=== PATIENT | male | born 1970 | race Caucasian/White ===

== ENCOUNTER 2018-02-20 21:58 | Emergency (ER) | payer OTHER ==
[~2018-02-20] VITALS: Ht 167.6 cm; Wt 98.9 kg
[2018-02-20] MEDS ORDERED: PAXIL10 MG/5 ML (22:22)
[2018-02-20] MEDS ORDERED: EFFEXOR XR37.5 MG (22:23)
[2018-02-20] MEDS ORDERED: SEROPHENE50 MG (22:24)
[2018-02-20] MEDS ORDERED: CLONAZEPAM1 MG (22:24)
[2018-02-20] MEDS ORDERED: FLURAZEPAM HCL30 MG (22:26)
[2018-02-20] MEDS ORDERED: SEROQUEL XR50 MG (22:27)
[2018-02-21] MEDS ORDERED: PROTONIX40 MG PO (02:25)
== END 2018-02-21 02:24 | disposition home or self-care (01) ==
LOC: ER 21:58
DX: K29.70 Gastritis, unspecified, without bleeding (principal)